=== PATIENT | male | born 1975 | race Caucasian/White ===

== ENCOUNTER 2020-01-29 22:10 | Emergency (ER) | payer BC ==
[~2020-01-29] VITALS: Ht 182.9 cm; Wt 90.9 kg
[2020-01-29] MEDS ORDERED: PERCOCET 5MG/325MG TAB PO ONE (23:30)
[2020-01-30] MEDS ORDERED: PERC5TAB12 PO (00:25)
[2020-01-30] MEDS ORDERED: OXYCODONE/APAP 5MG/325MG(BULK FOR ED) 1 TABLET PO ONE (00:30)
[2020-01-30 00:50] VITALS: BP 135/98
--- NOTE | 2020-01-30 01:20 | REPVR ---
PROCEDURE INFORMATION: Exam: CT Right Lower Extremity Without Contrast, Ankle Exam date and time: 01/30/2020 12:13 AM Age: 45 years old Clinical indication: Injury or trauma; Fall; Initial encounter; Fracture, traumatic; Displaced; Right; Body of calcaneus; Additional info: Calcaneal FX, no contrast please TECHNIQUE: Imaging protocol: CT of the Right lower extremity without contrast was performed. Exam focused on the ankle. Radiation optimization: All CT scans at this facility use at least one of these dose optimization techniques: automated exposure control; mA and/or kV adjustment per patient size (includes targeted exams where dose is matched to clinical indication); or iterative reconstruction. COMPARISON: CR Ankle, complete RIGHT 01/29/2020 10:34 PM FINDINGS: Bones/joints: There is extremely comminuted fracture of the calcaneus with multiple fractures extending to the anterior and posterior articular facets as well as to the anterior process of the calcaneus at the calcaneocuboid joint. Fracture also extends into the sustentaculum anusha. Distal tibia and fibula are intact. Ankle mortise and talar dome are intact. No other fractures are seen. Overall alignment is normal. Soft tissues: There is extensive soft tissue swelling throughout the foot and ankle. IMPRESSION: Comminuted fracture of the calcaneus as above. Electronically signed by: Les Hernadez On 01/30/2020 01:20:08 AM
--- NOTE | 2020-01-30 07:42 | REP ---
Clinical: Trauma. Technique: AP, lateral, bilateral oblique views of the right ankle. Findings: Lateral view best demonstrates calcaneus fracture and diffuse soft tissue swelling. Impression: Nondisplaced calcaneal fractures. Overlying soft tissue swelling. Electronically Signed by Aleksey Carreno MD 01/30/2020 07:34 A
--- NOTE | 2020-01-30 07:49 | REP ---
Clinical: Trauma. Technique: Axial and lateral views of the calcaneus. Findings: Multipartite calcaneal fracture with overlying soft tissue swelling noted. Impression: Calcaneus fracture. Electronically Signed by Aleksey Carreno MD 01/30/2020 07:41 A
== END 2020-01-30 01:07 | disposition home or self-care (01) ==
LOC: M ED 22:10
DX: S92.001A Unspecified fracture of right calcaneus, initial encounter for closed fracture (principal); X50.1XXA Overexertion from prolonged static or awkward postures, initial encounter; Y92.89 Other specified places as the place of occurrence of the external cause; Y93.89 Activity, other specified; Y99.9 Unspecified external cause status; Z72.0 Tobacco use

== ENCOUNTER → 2021-10-08 | Outpatient (REF) | payer BC ==
[~2021-10-08] MED LIST: PERC5TAB12 PO
== END ==
LOC: M SFHCDERM 17:19
PROVIDERS: ATTEND Dermatology
DX: L72.0 Epidermal cyst (principal)

== ENCOUNTER → 2021-11-26 | Outpatient (REF) | payer BC | LOC: M LAB REF 19:11 | PROVIDERS: ATTEND Nurse Practitioner Family | DX: L57.0 Actinic keratosis (principal) ==